=== PATIENT | male | born 1960 | race Caucasian/White ===

== ENCOUNTER 2019-10-17 20:59 | Observation (INO) | payer OTHER, SELFPAY ==
[2019-10-17 20:59] VITALS: BP 176/108; PULSE 100; RESP 16; TEMP 36.7; O2SAT 96; BMI 34.4
--- NOTE | 2019-10-17 21:49 | ED.DCSUM_ITS ---
History of Present Illness Chief Complaint: Chest Pain Informant: Patient, Spouse/S.O. Onset: Today - around 6 hrs ago Activity at onset: Rest Timing: Continuous Quality: Tightness Location: Substernal - ? radiate to the left shoulder -- unsure because I get shoulder pains off and on bilaterally Current Severity: Moderate Maximum Severity: Moderate Worsened By: Nothing. Not Worsened By: Movement of Arm, Movement of Torso, Eating, Breathing, Coughing Relieved By: Nothing Associated Symptoms: Negative for: Nausea, Vomiting, Diaphoresis, Dyspnea, Cough, Fever, Lightheadedness Narrative: Chest tightness that has not gone away all afternoon and evening since it started. Is never had this before. States sometimes at the end of his shift, he gets a little short of breath but he does not get this chest discomfort with it. Unknown if this is wheezing or not. This is nonpleuritic tightness across his chest, no tearing sensations, no chest or jaw sensations. States he takes medicine for reflux but has not seen a doctor for 7 years. Non-smoker. - Past Medical History (1) GERD (gastroesophageal reflux disease) Status: Chronic Past Medical History - Allergies and Home Meds Allergies/Adverse Reactions: Allergies pollen extracts Allergy (Verified 10/17/19 21:02) Itching Primary Care Physician: Care Physician,No Primary [Primary Care Provider] - Lives: Spouse/ Significant Other Smoking Status: Never smoker Drugs: None Review of Systems General: Reports: Malaise. Denies: Chills, Fever, Sweats Eyes: Denies: Visual changes - bilaterally, Diplopia ENT: Denies: Rhinorrhea, Sore throat Cardiovascular: Reports: Chest pain. Denies: Palpitations Respiratory: Denies: Dyspnea, Cough, Dyspnea on exertion Gastrointestinal: Denies: Abdominal pain, Nausea, Vomiting, Diarrhea, Melena, Hematochezia Genitourinary: Denies: Dysuria, Hematuria, Frequency Musculoskeletal: Reports: Extremity Pain. Denies: Back pain, Swelling Skin: Denies: Rash, Wounds Neurological: Denies: Headache, Weakness, Numbness Physical Exam Vital Signs/Narrative: Vital Signs Temp Pulse Resp BP Pulse Ox 10/17/19 20:59 98.1 F 100 16 176/108 H 96 Inital Vital Signs reviewed: Yes General: Well nourished, Well developed, No Acute Distress Head: Normocephalic, Atraumatic Eyes: Perrl, EOMI ENT: Moist mucous membranes, No rhinorrhea Neck: Supple, Nontender Cardiovascular: Regular rate, Regular rhythm, Murmur - Diastolic, loud, - - Equal bilateral 2+/4 radial pulses Respiratory: No distress, CTA bilaterally, Chest nontender, - - No splinting on deep inspiration Abdomen: Soft, Nontender, Nondistended, Normal bowel sounds Back: Nontender, Normal Inspection Extremities: Nontender, No edema. Negative for: Calf Tenderness Skin: Normal color, No rash, No Trauma Neurological: Alert, Oriented x3, Cranial nerves II-XII grossly intact, Normal Strength, Normal Sensation, Normal Gait Psychological: Normal affect, Normal Mood Diagnostic/Tx/Re-eval Impressions Chest X-Ray 10/17/19 22:03 IMPRESSION: Normal x-ray examination of the chest. Electronically Signed: Fco Harp MD at 22:14 EDT , Service support , 10/17/19 22:03 Chest 1 View (Portable) [RAD] Stat Laboratory Results 10/17/19 10/17/19 10/17/19 21:25 21:25 21:25 WBC 10.8 RBC 5.55 Hgb 15.1 Hct 47.0 MCV 84.7 MCH 27.2 MCHC 32.1 RDW Std Deviation 39.7 RDW Coeff of Mere 13.0 Plt Count 267 MPV 9.1 Immature Gran % (Auto) 1.100 H Neut % (Auto) 69.3 Lymph % (Auto) 17.9 L [place] % (Auto) 8.0 Eos % (Auto) 3.2 Baso % (Auto) 0.5 Absolute Neuts (auto) 7.5 Absolute Lymphs (auto) 1.94 Nucleated RBC % 0 APTT Cancelled Sodium 142 Potassium 3.8 Chloride 107 Carbon Dioxide 29.0 Anion Gap 6 BUN 18 Creatinine 1.39 H Estim Creat Clear Calc 53.50 Est GFR (MDRD) Af Amer 67 Est GFR (MDRD) Non-Af 56 L BUN/Creatinine Ratio 12.9 Glucose 183 H Calcium 9.2 Troponin I < 0.015 10/17/19 22:10 WBC RBC Hgb Hct MCV MCH MCHC RDW Std Deviation RDW Coeff of Mere Plt Count MPV Immature Gran % (Auto) Neut % (Auto) Lymph % (Auto) [place] % (Auto) Eos % (Auto) Baso % (Auto) Absolute Neuts (auto) Absolute Lymphs (auto) Nucleated RBC % APTT 28.5 Sodium Potassium Chloride Carbon Dioxide Anion Gap BUN Creatinine Estim Creat Clear Calc Est GFR (MDRD) Af Amer Est GFR (MDRD) Non-Af BUN/Creatinine Ratio Glucose Calcium Troponin I - Rhythm Strip Rhythm Strip: Sinus Tach Rate: 101 Ectopy: None - EKG Initial EKG Interpretation: No Acute Injury Pattern, Sinus Tachycardia, Non-Specific ST Changes - Inferolateral. No ST elevations or depressions seen. Q waves present anteroseptal. [place] within normal limits. Prior: No Prior Treatment: NTG SL, - - took ASA 325 PACKAGE [employer] Repeat Eval: 06/17 THADDEUS Risk: No Positive THADDEUS Elements Score: 0 - Medical Decision Making Patient has an abnormal EKG with no prior to compare. I am concerned about his diastolic murmur. He had a negative stress test 7 years ago which is the last time he saw a physician. His symptoms he has never had before and are concerning. He was a little better after nitroglycerin and an albuterol aerosol, he did not think the albuterol helped things tremendously. We discussed options and he preferred to stay in the hospital which I think is reasonable, PCU observation. ED Disposition - Plan for ED Patient: Disposition: [facility] Diagnosis: Chest pain, unspecified, Heart murmur Referrals: Care Physician,No Primary [Primary Care Provider] -
--- NOTE | 2019-10-17 21:49 | EKG12_ITS ---
Test Reason : CP Blood Pressure : / mmHG Vent. Rate : 101 BPM Atrial Rate : 101 BPM P-R Int : 162 ms QRS Dur : 090 ms QT Int : 330 ms P-R-T Axes : 037 -02 035 degrees QTc Int : 427 ms Sinus tachycardia Inferior infarct , age undetermined Abnormal ECG Confirmed by LONNY KATHLEEN, TANIA ([id number]), supervising editor trailer JUAN JOSÉ TOVAR ([id number]) on 10/21/2019 2:06:36 PM Referred By: Confirmed By:JOE MUKHERJEE MD
[2019-10-17 22:01] LABS: Absolute Lymphocyte Count 1.94 X10^3/uL (0.83-4.51); Absolute Neutrophil Count 7.5 X10^3/uL (2.0-7.7); Basophil# 0.05 X10^3/uL; Basophil% 0.5 % (0-1); Eosinophil# 0.35 X10^3/uL; Eosinophils% 3.2 % (0-5); Hemoglobin 15.1 g/dL (13.0-16.5); Lymphocyte # 1.94 X10^3/ul (4.0); Lymphocyte % 17.9 % (19-41); Mean Corp Hgb Conc 32.1 g/dL (32-36); Mean Corpuscular Hgb 27.2 pg (27.0-32.0); Mean Corpuscular Volume 84.7 fL (80-94); Mean Platelet Vol. 9.1 fl (6.2-12.0); Monocyte# 0.87 X10^3/uL; NRBC Flagged by Analyzer 0 % (0-5); Neutrophil # 7.51 X10^3/uL (2.7-7.7); Neutrophil % 69.3 % (47-70); Platelet Count 267 K/mm3 (150-450); RBC Distribution Width SD 39.7 fl (35.1-43.9); Red Blood Count 5.55 M/mm3 (4.6-6.2); White Blood Count 10.8 K/mm3 (4.4-11.0)
--- NOTE | 2019-10-17 22:03 | RAD_ITS ---
STUDY: X-RAY CHEST REASON FOR EXAM: Male, 59 years old. chest pain TECHNIQUE: Single AP portable view of the chest. COMPARISON: None. FINDINGS: The lungs are clear and expanded. There is no demonstrated pleural abnormality. Normal size heart. Normal mediastinum and ritchie. Normal visualized pulmonary arteries. Normal visualized aortic arch and descending thoracic aorta. Normal visualized thoracic spine. Normal visualized ribs, clavicles, and shoulders. There is no demonstrated abnormality of the visualized soft tissue structures of the upper abdomen. RAD/Chest 1 View (Portable) IMPRESSION: Normal x-ray examination of the chest. Electronically Signed: Fco Harp MD at 22:14 EDT , Service support ,
[2019-10-17 22:08] VITALS: BP 150/74; PULSE 88
[2019-10-17] MEDS: Nitroglycerin SL (ED/IMG/CATH) 0.4 MG TABLET SUBLINGUAL (22:08)
[2019-10-17] MEDS: 0.9% Normal Saline 1,000 ML 150 ML IV (22:13)
[2019-10-17 22:14] VITALS: BP 113/61; PULSE 92; RESP 13; O2SAT 97
[2019-10-17 22:14] LABS: Anion Gap 6 (5-15); BUN 18 mg/dL (7-18); BUN/Creat Ratio 12.9 RATIO (10-20); Calcium,Total 9.2 mg/dL (8.5-10.1); Chloride 107 mmol/L (98-107); Creatinine, Serum 1.39 mg/dL (0.70-1.30); EST Glomerular Filtration Rate 56 mL/min (>60); Est Glom Filt Rate - Afr Amer 67 mL/min (>60); Glucose 183 mg/dL (74-106); Potassium 3.8 mmol/L (3.5-5.1); Sodium Level 142 mmol/L (136-145)
--- NOTE | 2019-10-17 22:15 | ED.RN ---
BP after 1 dose of nitro, 113/61. pt felt like he was going to pass out and felt a queazy. pt laid flat in bed. holding second dose of nitro for now.
[2019-10-17 22:29] LABS: Partial Thromboplast Time 28.5 Seconds (24.1-36.2)
[2019-10-17] MEDS: Albuterol 2.5 MG/3 ML VIAL.NEB. INHALATION (23:35)
[2019-10-17 23:38] VITALS: PULSE 100; RESP 15
[2019-10-17 23:39] VITALS: BP 144/75; PULSE 99; RESP 10; O2SAT 98
[2019-10-18] VITALS (8 sets, daily range): BP systolic 125–163; BP diastolic 75–90; PULSE 86–104; RESP 14–18; TEMP 36.4–36.8; O2SAT 95–98; BMI 36.0
--- NOTE | 2019-10-18 00:55 | PCM.HP.STD ---
Problem List (1) GERD (gastroesophageal reflux disease) Status: Chronic (2) Chest pain, unspecified Status: Acute (3) Heart murmur Status: Acute History of Present Illness Date of Admission: 10/18/19 Chief Complaint: Chest pain The patient is a 59 year old M with a significant history of vasovagal syncope who presented to the emergency department with substernal chest pain. His chest pain started while at work. However he denies that it was physical activity that brought his pain on. His chest pain started on the same day of presentation. He describes chest pain as a tightness that got progressively worse. With food (dinner) his chest pain worsened. He denies any ameliorating factors. He has left shoulder pain but he does not think it is a radiation of his chest pain since he always have this left shoulder pain. He denies any nausea, vomiting or diaphoresis. Because of chest pain he took aspirin at home. He has some shortness of breath that he associates with his work environment. Past Medical History Past Medical History (Chronic Problems): Chronic Problems GERD (gastroesophageal reflux disease) (Chronic) Allergies pollen extracts Allergy (Verified 10/17/19 21:02) Itching Home Medications: Ambulatory Orders Medication Instructions Recorded NK 10/17/19 Surgical History: - - Teeth extraction; extraction of of metals from bilateral forearms. Lives: Spouse/ Significant Other Smoking Status: Never smoker Drugs: None - *Family History Maternal History Items: Heart Disease Paternal History Items: Heart Disease Review of Systems Constitutional: Denies: Chills, Fever, Weight Change HEENT: Denies: Head Aches, Sinus Congestion, Sinus Drainage Cardiovascular: Reports: Chest Pain. Denies: Palpitations Respiratory: Reports: Shortness of Breath. Denies: Cough, Shortness of breath at rest, Sputum production Gastrointestinal: Denies: Abdominal Pain, Nausea, Vomiting Genitourinary: Denies: Dysuria Musculoskeletal: Reports: Shoulder Pain - Left. Denies: Joint Pain, Joint Tenderness Skin: Denies: Rash, Wounds Neurological: Denies: Numbness, Tingling, Focal weakness Psychiatric: Denies: Anxiety, Depression, Homicidal Ideations, Suicidal Ideations Hematologic/ Lymphatic: Denies: Easy Bruising, Easy Bleeding VTE Information - Inpt Only VTE Present on Admission: No VTE Mechan Device Prophylaxis: None VTE Pharm Prophylaxis ordered?: Yes Patient Problems: Active and Suspected Problems Chest pain, unspecified (Acute) Heart murmur (Acute) - Physical Exam Vitals/I&O's: Vital Signs Temp Pulse Resp BP Pulse Ox 98.1 F 99 10 L 144/75 H 98 10/17/19 20:59 10/17/19 23:39 10/17/19 23:39 10/17/19 23:39 10/17/19 23:39 Oxygen Delivery Method Room Air Weight: 99.79 kg Body Mass Index (BMI) 34.4 General: Alert, Oriented x3, Cooperative HEENT: Atraumatic, PERRLA, EOMI, Normocephalic Neck: Supple, Trachea Midline Lungs: Clear to auscultation, Normal air movement, No rhonchi, No rales Cardiovascular: Regular rate, Normal S1, Normal S2, Gallops Abdomen: Bowel Sounds Present, Soft, Non Tender Extremities: No edema, Capillary Refill Less than 3 Seconds Skin: No rashes, No breakdown Musculoskeletal: No Tenderness to Palpation of Joints or Extremities Neurological: Cranial nerves II-XII grossly intact Psych/Mental Status: Normal Affect, Appropriate Laboratory Results 10/17/19 21:25: WBC 10.8, RBC 5.55, Hgb 15.1, Hct 47.0, MCV 84.7, MCH 27.2, MCHC 32.1, RDW Std Deviation 39.7, RDW Coeff of Mere 13.0, Plt Count 267, MPV 9.1, Immature Gran % (Auto) 1.100 H, Neut % (Auto) 69.3, Lymph % (Auto) 17.9 L, [place] % (Auto) 8.0, Eos % (Auto) 3.2, Baso % (Auto) 0.5, Absolute Neuts (auto) 7.5, Absolute Lymphs (auto) 1.94, Nucleated RBC % 0 10/17/19 21:25: APTT Cancelled 10/17/19 21:25: Sodium 142, Potassium 3.8, Chloride 107, Carbon Dioxide 29.0, Anion Gap 6, BUN 18, Creatinine 1.39 H, Estim Creat Clear Calc 53.50, Est GFR (MDRD) Af Amer 67, Est GFR (MDRD) Non-Af 56 L, BUN/Creatinine Ratio 12.9, Glucose 183 H, Calcium 9.2, Troponin I < 0.015 10/17/19 22:10: APTT 28.5 Current Medications Sodium Chloride () 1,000 mls @ 150 mls/hr IV .[id number] ZOLTAN Last Admin: 10/17/19 22:13 Dose: 150 mls/hr Documented by: Nitroglycerin (Nitrostat) 0.4 mg SUBLINGUAL Q5M PRN PRN Reason: Chest pain Last Admin: 10/17/19 22:08 Dose: 0.4 mg Documented by: Assessment/Plan All Active Problems Chest pain, unspecified (Acute) Heart murmur (Acute) The patient is a 59 year old M with a significant history of vasovagal syncope; and obesity who presented to the emergency department with substernal chest pain. Chest pain Place on a monitored bed at the PCU Actual CXR image was independently visualized. No acute cardiopulmonary process was noted. Actual EKG tracing was independently visualized. EKG tracing showed Q waves in inferior leads and T wave flattening in leads V3, V4, V5 and V6. ASA 81 mg p.o. daily ordered SL NTG 0.4 mg prn as needed for chest pain ordered We will check lipid panel. Review of emergency department labs showed a initial troponin was unremarkable. Serial cardiac enzymes ordered Stat EKG as needed for chest pain Dobutamine echocardiogram stress test in the a.m. and surface echocardiogram. Patient reported that on previous stress test he had vasovagal syncope which he attributed to a contrast medium. Elevated creatinine Creatinine is mildly elevated at 1.39 No previous records in our hospital system and from [facility] for baseline creatinine. Unclear whether this is DIANA or CKD. Gentle IV hydration. Avoid nephrotoxics Hyperglycemia Patient with hyperglycemia ON presentation. Diabetes mellitus. Check A1c. Obesity: Complicates care. Recommend lifestyle modifications. DVT prophylaxis SCD. No chemical chemoprophylaxis in the setting of cardiac work-up. OBSV E&M: 31679 Initial observation care L3
--- NOTE | 2019-10-18 02:23 | ECHOD_ITS ---
Reason For Study: Chest pain Procedure This was a 2D Doppler, Color Flow transthoracic echocardiogram. Exam performed in department. Left Ventricle Normal LV size. The estimated ejection fraction is 60 %. No evidence for diastolic dysfunction. No regional wall motion abnormalities noted. Right Ventricle Normal RV size. Normal systolic function. Atria Normal left atrium. Normal right atrium. No doppler evidence for ASD. Mitral Valve There is no mitral valve stenosis. No mitral valve insufficiency. Tricuspid Valve There is no tricuspid stenosis. Unable to estimate RV systolic pressure due to insufficient tricuspid regurgitant envelope. Aortic Valve Trisinus/trileaflet aortic valve. There is no aortic stenosis. No aortic valve insufficiency. Pulmonic Valve There is no pulmonic valvular stenosis. No pulmonic valve insufficiency. Great Vessels Normal aortic root. Pericardium/Pleural No pericardial effusion. MMode/2D Measurements & Calculations LVIDd: 4.2 cm IVSd: 0.99 cm Ao root diam: 3.6 cm LVIDs: 2.6 cm LVPWd: 1.00 cm RVDd: 3.0 cm FS: 37.9 % LAV(MOD-bp): 42.6 ml LA A4 area: 15.2 cm2 LA dimension(2D): 3.3 cm LAV(MOD-bp) Indexed: 20.2 ml/m2 LAV(MOD-sp2): 43.3 ml LAV(MOD-sp4): 37.1 ml RA A4 area: 11.6 cm2 Doppler Measurements & Calculations MV E max tk: 73.7 cm/sec Lat Peak E' Tk: 8.4 cm/sec Med Peak E' Tk: 9.6 cm/sec MV A max tk: 94.8 cm/sec E/E' lat: 8.8 E/E' med: 7.6 MV E/A: 0.78 Ao V2 max: 128.6 cm/sec LV V1 max: 105.6 cm/sec PA V2 max: 138.5 cm/sec Ao max P.6 mmHg LV V1 max P.5 mmHg Interpretation Summary The estimated ejection fraction is 60 %. No evidence for diastolic dysfunction. Ordering Physician: Rob Gonzalez Performed By: Janet Rowell RDCS
--- NOTE | 2019-10-18 02:23 | EKG12_ITS ---
Test Reason : CP ADMISSION Blood Pressure : / mmHG Vent. Rate : 098 BPM Atrial Rate : 098 BPM P-R Int : 178 ms QRS Dur : 096 ms QT Int : 322 ms P-R-T Axes : 048 010 020 degrees QTc Int : 411 ms Normal sinus rhythm Poor R wave progression Nonspecific T-Wave Abnormality Confirmed by MAK KATHLEEN, STEVE ([id number]), editor book JUAN JOSÉ TOVAR ([id number]) on 10/23/2019 1:12:37 PM Referred By: RACHEL Confirmed By:STEVE CORADO MD
[2019-10-18] MEDS: 0.9% Normal Saline 1,000 ML 75 ML IV (02:47)
--- NOTE | 2019-10-18 05:55 | STE_ITS ---
Reason For Study: CHEST PAIN Stress Results Protocol: [facility] Protocol Maximum Predicted HR: 161 bpm Target HR: 137 bpm % Maximum Predicted HR: 95 % DurationHeart Rate Stage (mm:ss) (bpm) BP Comment BASELINE 99 158/88 STAGE 1 3:00 125 162/84 STAGE 2 3:00 153 182/70INCREASED SOB AND CALVES DISCOMFORT RECOVERY 113 140/82 Stress Duration: 6:00 mm:ss Maximum Stress HR: 153 bpm Baseline Echocardiogram Findings The estimated ejection fraction is 60 %. Stress Echo Wall motion Data Resting WM Intermediate WM Stress WM Resting Wall Motion Wall Motion Stress No regional wall motion No regional wall motion abnormalities noted. abnormalities noted. Stress Results Post Exercise EF was 70%. No CP with exercise. EKG Data The baseline ECG displays normal sinus rhythm. No ischemic changes. Symptoms with Stress The patient experinced no chest pain . Interpretation Summary The estimated ejection fraction is 60 %. Stress echo is negative for exercise induced CP or EKG or echocardiographic changes of ischemia. Functional capacity is slightly decreased for age Ordering Physician: Rob Gonzalez Performed By: Janet Rowell RDCS
[2019-10-18] MEDS: Aspirin E.C. 81 MG Tablet PO (06:17)
[2019-10-18 06:31] LABS: Absolute Lymphocyte Count 1.17 X10^3/uL (0.83-4.51); Absolute Neutrophil Count 8.4 X10^3/uL (2.0-7.7); Basophil# 0.04 X10^3/uL; Basophil% 0.4 % (0-1); Eosinophil# 0.04 X10^3/uL; Eosinophils% 0.4 % (0-5); Hematocrit 46.2 % (40-54); Hemoglobin 14.6 g/dL (13.0-16.5); Lymphocyte # 1.17 X10^3/ul (4.0); Lymphocyte % 10.8 % (19-41); Mean Corp Hgb Conc 31.6 g/dL (32-36); Mean Corpuscular Hgb 27.4 pg (27.0-32.0); Mean Corpuscular Volume 86.8 fL (80-94); Mean Platelet Vol. 9.4 fl (6.2-12.0); Monocyte# 1.12 X10^3/uL; Monocyte% 10.3 % (0-10); NRBC Flagged by Analyzer 0 % (0-5); Neutrophil # 8.39 X10^3/uL (2.7-7.7); Neutrophil % 77.1 % (47-70); Platelet Count 233 K/mm3 (150-450); RBC Distribution Width SD 40.3 fl (35.1-43.9); Red Blood Count 5.32 M/mm3 (4.6-6.2); White Blood Count 10.9 K/mm3 (4.4-11.0)
[2019-10-18 06:38] LABS: Anion Gap 5 (5-15); BUN 13 mg/dL (7-18); BUN/Creat Ratio 12.7 RATIO (10-20); Calcium,Total 8.8 mg/dL (8.5-10.1); Chloride 111 mmol/L (98-107); Cholesterol 255 mg/dL (200); Creatinine, Serum 1.02 mg/dL (0.70-1.30); EST Glomerular Filtration Rate 79 mL/min (>60); Est Glom Filt Rate - Afr Amer 96 mL/min (>60); Glucose 126 mg/dL (74-106); High Density Lipoprotein 41 mg/dL; Sodium Level 143 mmol/L (136-145); Triglycerides 117 mg/dL; Very Low Density Lipoprotein 23 mg/dL (5-40)
[2019-10-18 07:03] LABS: Hemoglobin A1c 6.2 % (3.8-5.6)
--- NOTE | 2019-10-18 11:53 | DCINST_ITS ---
- Discharge Diagnoses Current Active Problems: Current Active and Chronic Problems GERD (gastroesophageal reflux disease) (Chronic) Chest pain, unspecified (Acute) Heart murmur (Acute) You will use the following diet at home:: Cardiac Your food should be the consistency of: Regular Your liquids should be the consistency of: Regular/Thin Discharge Activity: Return to Normal Activity Weight Bearing Status: Weight bearing as tolerated Call your doctor if you observe: Shortness of breath, Dizziness, Fainting spells, Chest pain Instructions: ED Chest Pain NonCardiac, Recognizing a Heart Attack or Angina, Warning Signs of a Heart Attack Allergies/Adverse Reactions: Allergies pollen extracts Allergy (Verified 10/17/19 21:02) Itching Medications to take at Discharge Nitroglycerin (INPATIENT USE) [Nitrostat] 0.4 mg SUBLINGUAL Q5M PRN #30 tab.subl 10/18/19 The following prescriptions were given: Nitroglycerin (INPATIENT USE) [Nitrostat] 0.4 mg SUBLINGUAL Q5M PRN #30 tab.subl PRN Reason: CHEST PAIN Transmission Status: Pending to [facility] Primary Care Physician: Care Physician,No Primary [Primary Care Provider] - Test Results: Test results from this visit will be discussed in further detail at your follow-up appointment, if applicable. Please Follow Up With: Jose Wilson MD When: call office to set up PCP appointment Proposed Discharge Date: 10/18/19
--- NOTE | 2019-10-18 11:54 | PCM.DC.SUM ---
Discharge Date and Diagnosis Date of Admission: 10/18/19 Date of Discharge: 10/18/19 - Primary Discharge Diagnosis Acute Problems: Active Problems Chest pain, unspecified (Acute) Heart murmur (Acute) - Secondary Discharge Diagnosis Chronic Problems: Chronic Problems GERD (gastroesophageal reflux disease) (Chronic) Hospital Course and Treatment Imaging Results: 10/18/19 05:55 Stress Test Echo w/o Contrast [ECHO] Routine Operations: None Procedures: Stress test Summary of Care Provided: The patient is a 59 year old M with a history of vasovagal syncope who was admitted via the ED in the early hours of 10/18/2019 with a complaint of chest pain. Chest pain started while he was at work but was no aggravated by exertion relieved by rest. Pain worsened with eating. He denied any aggravating or relieving factors. He was admitted to be managed for chest pain rule out ACS. Troponins x3 were negative and EKG showed no acute ST changes. He had a stress echocardiogram on 10/18/2019 which showed EF of 60% and was negative for any exercise-induced chest pain or EKG or echocardiographic changes of ischemia with functional capacity slightly decreased for age. 2D echo done showed EF of 60% with no evidence of diastolic dysfunction no regional wall motion abnormalities noted with inability to estimate right ventricular systolic pressure due to insufficient tricuspid regurgitant envelope. He remained stable and was discharged home on 10/18/2019 after stress test came back negative. Patient seen and examined prior to discharge. He had no complaints. Review of systems otherwise negative. Labs and vitals reviewed. Home medication reviewed and reconciled. O/e: [] Vital Signs Temp Pulse Resp BP Pulse Ox 97.8 F 92 14 152/82 H 98 10/18/19 09:40 10/18/19 11:00 10/18/19 09:40 10/18/19 09:40 10/18/19 09:40 General: Alert, Oriented x3, Cooperative HEENT: Atraumatic, PERRLA, EOMI, Normocephalic Neck: Supple, Trachea Midline Lungs: Clear to auscultation, Normal air movement, No rhonchi, No rales Cardiovascular: Regular rate, Normal S1, Normal S2, Gallops Abdomen: Bowel Sounds Present, Soft, Non Tender Extremities: No edema, Capillary Refill Less than 3 Seconds Skin: No rashes, No breakdown Musculoskeletal: No Tenderness to Palpation of Joints or Extremities Neurological: Cranial nerves II-XII grossly intact Psych/Mental Status: Normal Affect, Appropriate Plan is for discharge home today. Patient was given a prescription for sublingual nitroglycerin as needed for chest pain as needed. Patient has no PCP and so was referred to [facility] to establish PCP relationship. - Physical Exam Vitals/I&O's: Vital Signs Temp Pulse Resp BP Pulse Ox 97.8 F 92 14 152/82 H 98 10/18/19 09:40 10/18/19 11:00 10/18/19 09:40 10/18/19 09:40 10/18/19 09:40 Oxygen Delivery Method Room Air Weight: 230 lb 2.601 oz Body Mass Index (BMI) 36.0 Intake and Output for Last 24 Hours 10/16/19 10/17/19 10/18/19 23:59 23:59 23:59 Intake Total 1102.5 / 1102.5 Output Total 800 / 800 Balance 302.5 / 302.5 Laboratory Results 10/17/19 21:25: WBC 10.8, RBC 5.55, Hgb 15.1, Hct 47.0, MCV 84.7, MCH 27.2, MCHC 32.1, RDW Std Deviation 39.7, RDW Coeff of Mere 13.0, Plt Count 267, MPV 9.1, Immature Gran % (Auto) 1.100 H, Neut % (Auto) 69.3, Lymph % (Auto) 17.9 L, Sharkey % (Auto) 8.0, Eos % (Auto) 3.2, Baso % (Auto) 0.5, Absolute Neuts (auto) 7.5, Absolute Lymphs (auto) 1.94, Nucleated RBC % 0 10/17/19 21:25: APTT Cancelled 10/17/19 21:25: Sodium 142, Potassium 3.8, Chloride 107, Carbon Dioxide 29.0, Anion Gap 6, BUN 18, Creatinine 1.39 H, Estim Creat Clear Calc 53.50, Est GFR (MDRD) Af Amer 67, Est GFR (MDRD) Non-Af 56 L, BUN/Creatinine Ratio 12.9, Glucose 183 H, Calcium 9.2, Troponin I < 0.015 10/17/19 22:10: APTT 28.5 10/18/19 03:50: Troponin I < 0.015 10/18/19 05:33: WBC 10.9, RBC 5.32, Hgb 14.6, Hct 46.2, MCV 86.8, MCH 27.4, MCHC 31.6 L, RDW Std Deviation 40.3, RDW Coeff of Mere 13.0, Plt Count 233, MPV 9.4, Immature Gran % (Auto) 1.000 H, Neut % (Auto) 77.1 H, Lymph % (Auto) 10.8 L, Sharkey % (Auto) 10.3 H, Eos % (Auto) 0.4, Baso % (Auto) 0.4, Absolute Neuts (auto) 8.4 H, Absolute Lymphs (auto) 1.17, Nucleated RBC % 0 10/18/19 05:33: Sodium 143, Potassium 4.0, Chloride 111 H, Carbon Dioxide 27.0, Anion Gap 5, BUN 13, Creatinine 1.02, Estim Creat Clear Calc 72.90, Est GFR (MDRD) Af Amer 96, Est GFR (MDRD) Non-Af 79, BUN/Creatinine Ratio 12.7, Glucose 126 H, Calcium 8.8, Triglycerides 117, Cholesterol 255 H, LDL Cholesterol 191 H, VLDL Cholesterol 23, HDL Cholesterol 41 10/18/19 05:33: Troponin I < 0.015 10/18/19 05:33: Hemoglobin A1c 6.2 H 10/18/19 10:28: Troponin I < 0.015 Diagnostic Data Chest X-Ray 10/17/19 22:03 IMPRESSION: Normal x-ray examination of the chest. Electronically Signed: Fco Harp MD at 22:14 EDT , Service support , Current Medications Acetaminophen (Tylenol) 650 mg PO Q6H PRN PRN PRN Reason: Pain Score 1-10/Temp > 100.7 F Aspirin (Ecotrin) 81 mg PO DAILY@0800 ZOLTAN Last Admin: 10/18/19 06:17 Dose: 81 mg Documented by: Dextrose (D50w Syringe) 0 gm IV X1 PRN; Protocol PRN Reason: Hypoglycemia Glucagon () 1 mg IM .X1 PRN PRN Reason: Hypoglycemia Sodium Chloride () 1,000 mls @ 75 mls/hr IV .[id number] ZOLTAN Last Infusion: 10/18/19 09:41 Dose: 75 mls/hr Documented by: Nitroglycerin (Nitrostat) 0.4 mg SUBLINGUAL Q5M PRN PRN Reason: CHEST PAIN Ondansetron HCl (Zofran) 4 mg IV Q8H PRN PRN PRN Reason: NAUSEA/VOMITING Sodium Chloride () 10 - 40 ml IV UD PRN PRN Reason: SALINE FLUSH Discharge Diet: Low fat/ Low Cholesterol Discharge Activity: Return to Normal Activity Weight Bearing Status: Weight bearing as tolerated Call your doctor if you observe: Shortness of breath, Dizziness, Fainting spells, Chest pain Home Medications: Medications to take at Discharge Nitroglycerin (INPATIENT USE) [Nitrostat] 0.4 mg SUBLINGUAL Q5M PRN #30 tab.subl 10/18/19 Following Prescrptions Were Given to Patient: Nitroglycerin (INPATIENT USE) [Nitrostat] 0.4 mg SUBLINGUAL Q5M PRN #30 tab.subl PRN Reason: CHEST PAIN Transmission Status: Received by [facility] Primary Care Physician: Care Physician,No Primary [Primary Care Provider] - Please Follow Up With: Jose Wilson MD When: call office to set up PCP appointment Patient Instructions: Recognizing a Heart Attack or Angina, Warning Signs of a Heart Attack, ED Chest Pain NonCardiac Disposition: Home Minutes spent on discharge:: 40 Patient Condition:: Stable Medical Necessity - Tobacco Use Smoking Status: Never smoker Tobacco Use: Non-smoker Meaningful Use Info Meaningful Use Diagnoses (Choose all that apply): None applicable OBSV E&M: 87330 Subsequent observation care L2
== END 2019-10-18 11:54 | disposition home or self-care (01) ==
LOC: ED 10-18 01:11 → PCU 10-18 03:44
PROVIDERS: Admitting Provider Hospitalist; Emergency Provider Emergency Medicine; Visit Provider Student in an Organized Health Care Education/Training Program
DX: R07.89 Other chest pain (principal); M25.512 Pain in left shoulder; M25.511 Pain in right shoulder; K21.9 Gastro-esophageal reflux disease without esophagitis; R06.02 Shortness of breath; R01.1 Cardiac murmur, unspecified; R00.0 Tachycardia, unspecified; R94.31 Abnormal electrocardiogram [ECG] [EKG]; E11.65 Type 2 diabetes mellitus with hyperglycemia; E66.9 Obesity, unspecified; Z68.36 Body mass index [BMI] 36.0-36.9, adult
CPT/HCPCS: 36415; 71045; 80048; 80061; 83036; 84484; 85025; 85730; 93005; 93017; 93306; 93350; 94640; 96360; 96361; 99218; 99285; J7030; G0378

== ENCOUNTER 2020-09-28 18:00 | Outpatient (RCR) | payer OTHER, SELFPAY ==
[2020-07-27 09:50] VITALS: BMI 34.4
--- NOTE | 2020-08-04 08:29 | HP.PTEVAL ---
Patient's Visit Information PETE MEYER is a 60 year old M referred to Physical Therapy by Dr. Rob Cason DO with a diagnosis of LEFT FROZEN SHOULDER /ADHESIVE CAPSULITUS. Date of Evaluation: 08/03/20 Physical Therapist: Sabino Arceo, PT, Cert MDT, OCS - Visit Plan Frequency: 2x /Week Duration: 8WEEKS Plan: PT INTEREVTIONS MANUAL THERAPY G-H JOINT MOBS GR 2-3/PROM,STRETCHING ,POSTURAL EX'S AND PROGRESS TO RTC AND SCAPULAR STRENGTHENING - Subjective This 60y/o male presents to physical therapy with left frozen shoulder /adhesive capsulitus. Patient just developed shoulder pain Mar 2020 ,pain was fairly severe and worsen. Patient seen DR did x-rays and cortizone injection which helped.Aggraveting factors lifting,reaching and behind back and lfting [place]. Intially ,pain was worse but getting better ,and able to sleep on left side. Denies parathesia/tingling. Patient symptoms affects ADLS' and self hygine and job demands. Patient symptoms affects QOL. VOCATION: [employer]. SOCIAL: - Pain Right Shoulder Pain Intensity (Out of 10): 1 Pain Intensity Range: 10 - Objective POSTURE: mild foward posture. PALAPTION: unremarkable. NEURO: intact. AROM: shoulder flexion 130 degrees,abduction on scaption 130 degrees,ER 65 degrees ,IR pelvis level. MMT: RTC 4/5,DELTOID 4-/5. PROM : shoulder flexion 140 degrees,145 abduction in scaption,ER 65 degrees ERP no worse. CAPSULAR RESTRICTION: mod loss. SCAPULAR HUMERAL RYTHUM: less than 1:1 ratio - Goals Goal 1:: I with HEP Goal Time Frame: 6-8 Weeks Goal 2:: Improve AROM shoulder by 15-20 degrees or> to improve function and job demands. Goal Time Frame: 6-8 Weeks Goal 3:: Patient decrease pain with functional activities by 70% or > improve function and job . Goal Time Frame: 6-8 Weeks Goal 4:: Patient be able to peform jib demands and housework tasks without limiations Goal Time Frame: 6-8 Weeks Goal 5:: Patient to improve quick dash by 5 points or> to improve QOL Goal Time Frame: 6-8 Weeks - Rehabilitation Potential Physical Therapy Diagnosis: This patient has left shoulder adhesive capulitus with decrease ROM ,pain and strength impairs function with [place] activities and job demands thus will benifit from skilled PT Rehabilitation Potential: Good - Anticipated Interventions Thank you for the opportunity to evaluate your patient. For Medicare and Medicare HMO plans, please review the plan of care and approve it. It will need to be FAXED BACK to us at [phone] for Medicare purposes. For Medicare only, by signing this I certify the plan of care. Please let me know if there are questions or concerns regarding this plan of care. Physician Signature: Date:
--- NOTE | 2021-02-09 08:22 | HP.PTDCSUM ---
It has been my pleasure to treat PETE MEYER referred by Dr. Rob Cason DO, with the diagnosis of LEFT FROZEN SHOULDER /ADHESIVE CAPSULITUS for a total of 12 visit(s). Discharge Date: Please see the following information for a summary of their discharge status. Subjective: ERP only doing Right Shoulder Pain Intensity (Out of 10): 1 Left shoulder Pain Intensity (Out of 10): 0 % Improvement: 80 Objective/Function: BRANDEN TX WELL WITH ROM AND STRENGTH. AROM SHOULDER FLEXION 160 FLEXION,ABDUCTION 160 DEGREES. ABD/FLEXION MMT /5.RTC 5/ Goal 1:: I with HEP Goal 2:: Improve AROM shoulder by 15-20 degrees or> to improve function and job demands. Goal 3:: Patient decrease pain with functional activities by 70% or > improve function and job . Goal 4:: Patient be able to peform jib demands and housework tasks without limiations Goal 5:: Patient to improve quick dash by 5 points or> to improve QOL Plan: RECHECK2-3 WEEKS If there are questions or concerns regarding this patient's physical therapy, please feel free to call me at [phone]. Thank you for the referral of this patient. Sincerely, Sabino Arceo, PT, Cert MDT, OCS Balance/Gait/Functional tests - Balance/Special Test Scores Quick DASH Score: 2.5000
== END 2020-09-28 19:00 | disposition home or self-care (01) ==
LOC: PT 18:00
PROVIDERS: Referring Provider Orthopaedic Surgery; Visit Provider Orthopaedic Surgery
DX: M75.02 Adhesive capsulitis of left shoulder (principal)
CPT/HCPCS: 97110; 97140; 97162

== ENCOUNTER 2021-04-12 11:34 | Outpatient (CLI) | payer OTHER, SELFPAY ==
[2021-04-12] MEDS: 0.9% Saline Lock 10 ML Syringe IV (11:56)
[2021-04-12 11:57] VITALS: BP 158/88; PULSE 97; RESP 16; TEMP 36.9; O2SAT 97; BMI 35.2
[2021-04-12 12:56] VITALS: BP 137/89; PULSE 91; RESP 16; TEMP 37.1; O2SAT 97
[2021-04-12 13:50] VITALS: BP 123/72; PULSE 88; RESP 16; TEMP 37.1; O2SAT 95
== END 2021-04-12 14:01 | disposition home or self-care (01) ==
LOC: MS3OUT 11:34 → MS3 11:35
PROVIDERS: Referring Provider Nurse Practitioner Adult Health; Visit Provider Nurse Practitioner Adult Health
DX: Z23 Encounter for immunization (principal); U07.1 COVID-19
CPT/HCPCS: J7050; M0245; Q0245; A4216

== ENCOUNTER → 2022-11-01 | Outpatient (CLI) | payer OTHER, SELFPAY ==
[2022-11-01 18:04] LABS: Bacteria 0 SEEN /hpf (None Seen); Mucous, Urine 0 SEEN /hpf (<or=2+); White Blood Cells 0 SEEN /hpf (0-5)
[2022-11-01 18:35] LABS: Color, Urine Yellow (Yellow); Glucose, Dipstick 50 mg/dl (Normal); Ketone-Dipstick Negative (Negative); Leukocyte Esterase-Dipstick Negative /ul (Negative); Nitrite-Dipstick Negative (Negative); Occult Blood-Urine 50 /ul (Negative); Protein-Dipstick Negative (Negative); Urine Bilirubin Dipstick Negative (Negative); Urine Clarity Cloudy (Clear); Urine Urobilinogen Normal (Normal)
[2022-11-01 19:04] LABS: Amorphous Sediment 3+ URATE; Red Blood Cells-Urine 0-5 SEEN /hpf (0-5); Squamous Epithelial Cells - UA 0-5 SEEN /hpf (0-5)
== END | disposition home or self-care (01) ==
PROVIDERS: Visit Provider Family Medicine
DX: Z00.00 Encounter for general adult medical examination without abnormal findings (principal)
CPT/HCPCS: 81001

== ENCOUNTER → 2022-11-04 | Outpatient (CLI) | payer OTHER, SELFPAY ==
[2022-11-04 08:35] LABS: Anion Gap 4 (5-15); BUN 16 mg/dL (7-18); Calcium,Total 9.1 mg/dL (8.5-10.1); Chloride 108 mmol/L (98-107); Cholesterol 260 mg/dL (200); EST Glomerular Filtration Rate 80 mL/min (>60); Est Glom Filt Rate - Afr Amer 97 mL/min (>60); Glucose 139 mg/dL (74-106); High Density Lipoprotein 41 mg/dL; PSA,Total - Annual Screen 0.65 ng/mL (0.00-4.00); Potassium 4.2 mmol/L (3.5-5.1); Sodium Level 140 mmol/L (136-145); Triglycerides 168 mg/dL; Very Low Density Lipoprotein 34 mg/dL (5-40)
== END | disposition home or self-care (01) ==
PROVIDERS: PCP Family Medicine; Referring Provider Family Medicine; Visit Provider Family Medicine
DX: Z12.5 Encounter for screening for malignant neoplasm of prostate (principal); Z13.220 Encounter for screening for lipoid disorders; Z13.1 Encounter for screening for diabetes mellitus
CPT/HCPCS: 36415; 80048; 80061; 84153; G0103

== ENCOUNTER 2023-04-05 09:37 | Day surgery (SDC) | payer OTHER, SELFPAY ==
--- NOTE | 2023-03-20 09:09 | EKG12_ITS ---
Test Reason : PREOP Blood Pressure : / mmHG Vent. Rate : 073 BPM Atrial Rate : 073 BPM P-R Int : 176 ms QRS Dur : 086 ms QT Int : 360 ms P-R-T Axes : 043 003 003 degrees QTc Int : 396 ms Normal sinus rhythm Normal ECG Confirmed by KIMBERLY CHISHOLM ([id number]), editorial cartoonist JUAN JOSÉ TOVAR ([id number]) on 03/20/2023 11:24:48 AM Referred By: Alan Bustos Confirmed By:KIMBERLY CHISHOLM
[2023-04-05] VITALS (7 sets, daily range): BP systolic 113–165; BP diastolic 63–79; PULSE 73–88; RESP 14–17; TEMP 36.1–36.8; O2SAT 95–99; BMI 35.5
--- NOTE | 2023-04-05 11:11 | HP.PCM_ITS ---
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 Alan Bustos MD) Acute right otitis media Basal cell carcinoma BMI 35.0-35.9,adult Chest pain, unspecified COVID-19 Dysfunction of both eustachian tubes Frequent headaches GERD (gastroesophageal reflux disease) Heart murmur Surgical History (Updated 03/06/23 @ 09:28 by Samara Proctor) H/O basal cell carcinoma excision Superficial metal foreign body Family History (Updated 03/06/23 @ 09:30 by Samara Proctor) Grandmother Colon cancerMother CancerFather Cancer leukemia Social History (Updated 03/06/23 @ 09:30 by Samara Proctor) Smoking Status: Never smoker alcohol intake: never HPI HPI HPI: Patient is a 62-year-old male here for umbilical hernia. It has been there for years. Patient reports that is larger than it used to be. He denied any nausea or vomiting. He has no acute pain at the hernia. ROS General General: No weight change, appetite, fatigue, colon cancer, breast cancer or weakness HEENT HEENT: No difficulty swallowing, eye injury, eye surgery, swollen glands or hoarseness Endo Endocrine: No thyroid disease, diabetes mellitus, thyroid cancer, Hair loss, heat intolerance or cold intolerance Skin Skin: No rash or changing moles Breast Breast: No left breast lump, right breast lump, nipple discharge, breast pain, abnormal mammogram, abnormal US or breast enlargement Musc Musculoskeletal: No back problems, arthritis, rheumatoid arthritis, gout or joint pain Cardio Cardiovascular: No murmur, pacemaker, heart disease, atrial fibrillation, high blood pressure, heart attack, heart stent, palpitations, shortness of breat with exertion or chest pain Psych Psychiatric: No depression, anxiety or hearing voices Resp Respiratory: No shortness of breath, No sleep apnea, No cough, No COPD, No asthma, No emphysema and No wheezing Gastro Gastrointestinal: No abdominal pain, No nausea or vomiting, No diarrhea, No cons tipation, No blood in stool, No acid reflux, No hemorrhoids, No ulcers, No gallbladder problem and No black,tarry stools Brad Hematologic: No blood thinners, No blood disorders, No bleeding, No anemia and No blood clots Neuro Neurologic: No system reviewed and no additional complaints, except as documented, No as per HPI, No abnormal gait, No abnormal hearing, No abnormal movements, No abnormal speech, No behavioral changes, No burning sensations, No confusion, No convulsions, No disequilibrium, No dizziness, No localized weakness, No frequent falls, No headache(s), No lack of coordination, No loss of vision, No memory loss, No numbness, No other visual disturbances, No radicular pain, No restless legs, No sensory deficit, No syncope, No tingling, No tremor(s), No weakness and No other Exam Const General: cooperative Orientation: alert and oriented x3 [facility] Head: normal to inspection Neck Neck: normal visual inspection and full ROM Chest Chest palpation & inspection: normal inspection of the chest Resp Effort & Inspection: normal respiratory effort Auscultation: clear to auscultation bilaterally Cardio Rate: regular rate Rhythm: regular rhythm GI Inspection: non-distended Palpation: soft, hernia umbilical and nontender Skin General: no rashes or lesions noted Neuro General: patient alert and patient oriented x3 Extrem General: full ROM Psych Appearance: grossly normal Mental Status: mental status grossly normal Assessment and Plan Assessment and Plan (1) Umbilical hernia: Status: Acute Qualifiers: Obstruction and gangrene presence: without obstruction or gangrene Qualified Code(s): K42.9 - Umbilical hernia without obstruction or gangrene Plan: The patient has a small umbilical hernia which is reducible. When I was able to reduce it all it appears the opening is somewhere around the size of my fingertip. It is borderline between 1 cm or being over 1 cm but due to his body habitus I would recommend placing mesh. I discussed open umbilical hernia repair with mesh with the patient in detail. I discussed the risks including not limited to bleeding, infection, injury to other organs or mesh infection or recurrence. Patient understands the risks and is willing to proceed. Alan Bustos MD Pager: [facility] [address] [place] [address], [address] [place] [address] Office: I have examined the patient and the H&P has been reviewed. There are no clinical changes since date of exam.
--- NOTE | 2023-04-05 11:15 | HERN_PTH ---
PATIENT: PETE MEYER LOC: [facility] U#:[id number] AGE/SX: 63/M ROOM: RE04/05/[address]: Dr. Alan Bustos MD : 1960 BED: DIS: 04/05/2023 SPEC #: [id number] RECD: 04/05/23 13:56 STATUS: VONDA REQ #: [id number] CINDY: 04/05/23 11:[address]: Alan Bustos DEPT: SURGICAL PATHOLOGY RECD BY: Amna Rasmussen ENTERED: 04/06/23 10:55 SP TYPE: Hernia OTHR DR: Dr. Osorio North MD Tissues: HERNIA Procedures: Surgery Specimen Level II HEADER OPERATION: Umbilical hernia repair PRE-OP DIAGNOSIS: Umbilical hernia TISSUE SUBMITTED: Hernia sac MICROSCOPIC DIAGNOSIS Hernia sac, herniorrhaphy: Hernia sac with fibrosis. AM:laurie 04/07/2023 MICROSCOPIC DESCRIPTION Slides are reviewed. GROSS DESCRIPTION Received in fixative is one container labeled with the patient's name and designated hernia sac. The specimen consists of an irregular fragment of light zelaya soft tissue measuring 2.5 x 1.0 x 0.6 cm. The specimen is serially sectioned and totally submitted in one cassette. / AM:laurie 04/06/2023 TC:5 CPT: 70321
[2023-04-05] MEDS: Lidocaine 1% (20 ml mdv) 20 ML Vial (11:54)
[2023-04-05] MEDS: Bupivacaine Mpf 0.5% 30 ML VIAL (11:54)
[2023-04-05] MEDS: Cefazolin 2 GM in 0.9% Normal Saline (100mL Bag) 100 ML IV (11:54)
--- NOTE | 2023-04-05 12:16 | PCM.OPRPT ---
Report of Operation Date of Procedure: 04/05/23 Pre-Operative Diagnosis: Umbilical hernia less than 3 cm Post-Operative Diagnosis: Same Surgery/Procedure Performed:: Umbilical hernia repair Type of Anesthesia: Local MAC Specimen's removed: Hernia sac Estimated Blood Loss (mL): 5 Description of Procedure: Patient was brought back to the operating room and MAC anesthesia was induced. The abdomen was prepped and draped in usual sterile fashion. Inferior to the umbilicus a curvilinear incision was marked and injected with local anesthesia. An incision was made with a scalpel and deepened to the subcutaneous tissue. Electrocautery and blunt dissection were used to dissect the hernia sac free from the surrounding tissue. The hernia sac was then opened and contained fat. The fat was reduced and the hernia sac was resected and sent for pathology. The fascial defect was approximately 5 mm. It was closed with 3 interrupted 0 Nurolon sutures. The subcutaneous tissue was irrigated and suctioned dry. The incision was closed with interrupted 3-0 Vicryl. Steri-Strips and bandage were applied. Patient tolerated the procedure well was brought to PACU in stable condition. Grafts/Implants Used: No mesh was used Admit VTE Documentation VTE Mechan Device Prophylaxis: SCD's
--- NOTE | 2023-04-05 12:18 | DCINST_ITS ---
Discharge Instructions Procedure Hernia Diet Discharge Diet: Light diet - advance as tolerated Activity Discharge Activity: May Not Drive (for 2-3 days or while taking narcotic pain meds.) and May Shower (with the bandage in place tomorrow.) Lifting Restrictions: 20 pounds for 4 weeks. Additional Activity Instructions:: Climbing stairs is fine, walking is encouraged. Sitting in bed may be uncomfortable. Sitting up using your lateral muscles (sitting up sideways) is usually more comfortable. Do not drive, work heavy equipment of sign legal documents for 24 hours. Pain medications may cause nausea, you should typically eat light foods as you take your pain medications. Pain medications may also cause constipation. If you have difficulty with this, discuss with your doctor. Dressing / Incision Call your doctor if your incision/area has: Continuous Slow Oozing, Sudden Increased Bleeding, Increased Pain/ Swelling, Increased Redness and Foul Sm elling Discharge Call your doctor if you observe: Fever of 101 or Higher Suture Line Care: Avoid Pulling/Pushing and Avoid Pinching/Bending Remove Dressing in: 3 days (Remove clear bandage in 3 days, remove Steri-Strips in 7 to 10 days.) Cleanse incision/area with: Soap & Water Follow Up Care Please Follow Up With: Alan Bustos MD When: Please call to schedule 2 week follow up appointment. [phone] Test Results: Test results from this visit will be discussed in further detail at your follow- up appointment, if applicable. Discharge Plan Admission Attending Provider: Alan Bustos Primary Care Provider: Reinier North Instructions Additional Instructions / Restrictions: Alternate ibuprofen and Tylenol for pain, oxycodone for breakthrough pain. Discharge Orders/Prescriptions Prescriptions: New oxycodone 5 mg Tablet 5 - 10 mg PO Q4H PRN PRN (Reason: Pain Score 4-10/10) 5 Days Qty: 10 0RF Referrals / Follow Up: Reinier North MD [Primary Care Provider] - Disposition Disposition (needs filled in before D/C Order can be placed): Home, Self Care
== END 2023-04-05 14:19 | disposition home or self-care (01) ==
LOC: SDC 09:44 → AC 09:45
PROVIDERS: PCP Family Medicine; Referring Provider Surgery; Visit Provider Surgery
PROC: (CPT 49591; principal; 2023-04-05 11:00)
DX: K42.9 Umbilical hernia without obstruction or gangrene (principal); Z86.16 Personal history of COVID-19; K21.9 Gastro-esophageal reflux disease without esophagitis; Z85.828 Personal history of other malignant neoplasm of skin
CPT/HCPCS: 49591; 00830; 88302; 93005; J2405

== ENCOUNTER → 2024-02-09 | Outpatient (CLI) | payer OTHER, SELFPAY ==
[2024-02-09 11:08] LABS: ALB/GLOB Ratio 1.2 RATIO (0.9-2.4); AST(SGOT) 18 U/L (15-37); Alanine Aminotransfer ALT/SGPT 30 U/L (16-61); Albumin, Serum 3.8 g/dL (3.2-5.0); Alkaline Phosphatase 93 U/L (45-117); Anion Gap 4 (5-15); BUN 13 mg/dL (7-18); BUN/Creat Ratio 14.1 RATIO (10-20); Calcium,Total 9.3 mg/dL (8.5-10.1); Chloride 110 mmol/L (98-107); Cholesterol 279 mg/dL (200); Creatinine, Serum 0.92 mg/dL (0.70-1.30); EST Glomerular Filtration Rate 88 mL/min (>60); Est Glom Filt Rate - Afr Amer 107 mL/min (>60); Globulin 3.3 g/dL (2.2-4.2); Glucose 136 mg/dL (74-106); High Density Lipoprotein 46 mg/dL; PSA,Total - Annual Screen 1.12 ng/mL (0.00-4.00); Potassium 4.2 mmol/L (3.5-5.1); Protein, Total 7.1 g/dL (6.4-8.2); Sodium Level 140 mmol/L (136-145); Triglycerides 149 mg/dL; Very Low Density Lipoprotein 30 mg/dL (5-40)
== END | disposition home or self-care (01) ==
LOC: LAB 09:16
PROVIDERS: PCP Family Medicine; Referring Provider Family Medicine; Visit Provider Family Medicine
DX: E11.9 Type 2 diabetes mellitus without complications (principal); Z12.5 Encounter for screening for malignant neoplasm of prostate
CPT/HCPCS: 36415; 80053; 80061; 84153; 84403; 84443; G0103

== ENCOUNTER → 2024-07-17 | Outpatient (CLI) | payer OTHER, SELFPAY ==
[2024-07-17 10:06] LABS: Cholesterol 249 mg/dL (<=200); High Density Lipoprotein 44 mg/dL; Low Density Lipoprotein Calc. 178 mg/dL; Triglycerides 135 mg/dL; Very Low Density Lipoprotein 27 mg/dL (5-40); cholesterol:hdl ratio screen 5.61
== END | disposition home or self-care (01) ==
PROVIDERS: PCP Family Medicine; Referring Provider Family Medicine; Visit Provider Family Medicine
DX: E78.5 Hyperlipidemia, unspecified (principal)
CPT/HCPCS: 36415; 80061

== ENCOUNTER → 2025-03-10 | Outpatient (CLI) | payer OTHER, SELFPAY ==
[2025-03-10 10:46] LABS: AST(SGOT) 21 U/L (<=37); Alanine Aminotransfer ALT/SGPT 23 U/L (<=46); Albumin, Serum 4.4 g/dL (3.4-4.8); Alkaline Phosphatase 94 U/L (40-129); Anion Gap 8 (5-15); BUN 14 mg/dL (4-19); BUN/Creat Ratio 14.4 RATIO (10-20); Calcium,Total 9.4 mg/dL (7.6-11.0); Carbon Dioxide 27.9 mmol/L (21.0-32.0); Chloride 106 mmol/L (98-108); Cholesterol 271 mg/dL (<=200); Globulin 2.7 g/dL (2.2-4.2); Glucose 125 mg/dL (70-99); Low Density Lipoprotein Calc. 196 mg/dL; Potassium 4.3 mmol/L (3.3-5.1); Triglycerides 162 mg/dL; Very Low Density Lipoprotein 32 mg/dL (5-40); cholesterol:hdl ratio screen 6.06
[2025-03-11 08:08] LABS: CRP, High Sensitivity 3.45 mg/L (0.00-3.00)
== END | disposition home or self-care (01) ==
PROVIDERS: PCP Family Medicine; Referring Provider Family Medicine; Visit Provider Family Medicine
DX: E11.9 Type 2 diabetes mellitus without complications (principal); E78.5 Hyperlipidemia, unspecified
CPT/HCPCS: 36415; 80053; 80061; 84403; 84443; 86141